=== PATIENT | female | born 1945 | race Caucasian/White ===

== ENCOUNTER 2018-06-29 11:31 | Inpatient (IN) | payer MEDICARE, OTHER ==
[~2018-06-29] VITALS: Ht 165.1 cm; Wt 111.4 kg
[~2018-06-29 11:31] MED LIST: FLAGYL500 MG PO; FLEXERIL 1010 MG/TAB PO; LEVAQUIN 750MG750 M1 PO; LORTAB 7.5/5001 TAB PO; NO HOME MEDICATIONS; PERCOCET 325 MG1 TA2 PO; PROMETHAZINE12.5 M5 PO
[2018-06-29] MEDS ORDERED: GLUCOPHAGE500 MG/TAB PO (12:14)
[2018-06-29] MEDS ORDERED: PRINIVIL10 MG PO (12:19)
[2018-06-29] MEDS ORDERED: CALCIUM 600MG+D1 TAB PO (12:20)
[2018-06-29] MEDS ORDERED: PROLIA60 MG/ML SQ (12:20)
[2018-06-29 12:45] LABS: BASO % 0.7 % (0.0-2.0); EOS # 0.1 (0.0-0.7); EOS % 2.3 % (0-4.0); GRAN # 1.6 (1.4-6.5); GRAN % 55.1 % (42.2-75.2); HEMOGLOBIN 11.4 g/dl (12.5-16.0); LYMPH # 0.9 (1.2-3.4); LYMPH % 29.5 % (20.0-51.0); MEAN CELL VOLUME 92 fl (80.0-100.0); MEAN CORPUSCULAR HEMOGLOBIN 30 pg (27.0-31.0); MEAN CORPUSCULAR HGB CONC 32 g/dl (33.0-37.0); MEAN PLATELET VOLUME 11.1 fl (7.4-10.4); MONO # 0.4 (0.1-0.6); MONO % 12.4 % (1.7-9.3); PLATELET COUNT 117 K/mm3 (130-400); RED BLOOD COUNT 3.84 M/mm3 (4.10-5.30); REDCELL DISTRIBUTION WIDTH-CV 16.1 % (11.5-14.5)
[2018-06-29 12:49] LABS: HEMATOCRIT 35.5 % (37.0-47.0)
[2018-06-29 12:59] LABS: ALBUMIN 3.7 gm/dL (3.5-5.0); BILIRUBIN,TOTAL 0.5 mg/dL (0.0-1.0); C-REACTIVE PROTEIN 2.5 mg/dL (0.0-0.9); CALCIUM 9.2 mg/dL (8.4-10.2); CREATININE, serum 0.6 (0.52-1.25); POTASSIUM 4.3 mmol/L (3.4-5.0); TOTAL PROTEIN 7.7 gm/dL (6.4-8.2)
[2018-06-29 13:40] LABS: COLLECTION METHOD CLEAN CATCH
[2018-06-29 13:50] LABS: MUCOUS Present /lpf; PH 5 (5-8); URINE APPEARANCE Cloudy; URINE BACTERIA Rare /hpf; URINE BILIRUBIN Negative (NEGATIVE); URINE BLOOD 2+ (NEGATIVE); URINE COLOR Yellow; URINE GLUCOSE 1+ (NEGATIVE); URINE KETONE Negative (NEGATIVE); URINE LEUKOCYTE ESTERASE 1+ (NEGATIVE); URINE NITRATE Negative (NEGATIVE); URINE PROTEIN(semi-quant) Negative (NEGATIVE); URINE RBC 0-2 /hpf; URINE UROBILINOGEN Negative (NEGATIVE)
[2018-06-29 18:45] VITALS: BP 143/61; PULSE 90; TEMP 98
[2018-06-29 18:49] VITALS: BP 143/61; PULSE 90; TEMP 98
--- NOTE | 2018-06-29 19:00 | NUR ---
Arrived to the room at this time. No pain reported unless moving. Educated on the room and surroundings. This nurse educated to call for assistance with ambulation. Report given to GENESIS Yadav to resume care, complete Admission B, medications and allergies. This patient has not been seen by CLINICAL BIOCHEMICAL GENETICIST.
--- NOTE | 2018-06-29 20:00 | NUR ---
Admitted to medical floor from ER tonight- DX abdominal pain, states pain is much better after meds in ER were given- denies need for any pain meds now, Janneth HUA was here to see pt kalia- ,, IV fluids of NS at 125cc/hr, new IV site started L/FA, due to ER site was leaking- SCD,s on, Was given Rocephin {for UTI} and flagyl in ER
[2018-06-29 20:11] VITALS: BP 143/61; PULSE 90; TEMP 98
[2018-06-29 23:09] VITALS: BP 132/57; PULSE 86; TEMP 98.6
[2018-06-30 04:11] VITALS: BP 152/64; PULSE 81; TEMP 97.9
--- NOTE | 2018-06-30 04:44 | NUR ---
Up to bathroom, voided 200cc leonardo urine, was not in pain but after walking to bathroom requesting pain some tylenol-- tylenol given as ordered- quiet night,, overall feeling much better, VSS
[2018-06-30 07:06] LABS: GRAN # 1.8 (1.4-6.5); GRAN % 70.8 % (42.2-75.2); HEMOGLOBIN 10.7 g/dl (12.5-16.0); LYMPH # 0.5 (1.2-3.4); LYMPH % 21.1 % (20.0-51.0); MEAN CELL VOLUME 93 fl (80.0-100.0); MEAN CORPUSCULAR HEMOGLOBIN 30 pg (27.0-31.0); MEAN CORPUSCULAR HGB CONC 32 g/dl (33.0-37.0); MEAN PLATELET VOLUME 11.2 fl (7.4-10.4); MONO # 0.2 (0.1-0.6); MONO % 7.7 % (1.7-9.3); PLATELET COUNT 110 K/mm3 (130-400); RED BLOOD COUNT 3.63 M/mm3 (4.10-5.30)
[2018-06-30 07:09] LABS: HEMATOCRIT 33.8 % (37.0-47.0)
[2018-06-30 07:15] LABS: ALBUMIN 3.4 gm/dL (3.5-5.0); BILIRUBIN UNCONJUGATED 0.1 mg/dL (0.0-1.1); BILIRUBIN,DIRECT 0.1 mg/dL (0.0-0.4); BILIRUBIN,TOTAL 0.3 mg/dL (0.0-1.0); CALCIUM 8.8 mg/dL (8.4-10.2); CREATININE, serum 0.6 (0.52-1.25); POTASSIUM 5.1 mmol/L (3.4-5.0); TOTAL PROTEIN 7.5 gm/dL (6.4-8.2)
[2018-06-30 07:31] VITALS: BP 127/52; PULSE 83; TEMP 97.9
--- NOTE | 2018-06-30 08:30 | NUR ---
Initial assessment completed the patient reported feeling much better today with reduced pain, hardly present unless moving. Up ad bob in the room. The call light is in place.
[2018-06-30 11:36] VITALS: BP 142/52; PULSE 84; TEMP 98.1
[2018-06-30 16:22] VITALS: BP 125/52; PULSE 76; TEMP 97.7
[2018-06-30 19:25] VITALS: BP 141/53; PULSE 87; TEMP 98.7
--- NOTE | 2018-06-30 19:33 | NUR ---
Report given to GENESIS Raymond to resume care.
--- NOTE | 2018-06-30 19:35 | NUR ---
No change throughout the day. The call light is in place. The patient requesting to discharge home tomorrow.
--- NOTE | 2018-06-30 20:00 | NUR ---
Shift assessment complete. Pt resting in bed, awake, a&o, cooperative c cares. Pt reports "some" continued abd pain, PRN Tylenol admin per pt req. Pt denies any other c/o. IV patent. Pt denies needs. Call light in reach, will monitor.
[2018-06-30 23:57] VITALS: BP 124/54; PULSE 78; TEMP 97.8
[2018-07-01 04:21] VITALS: BP 148/65; PULSE 85; TEMP 98.2
--- NOTE | 2018-07-01 05:48 | NUR ---
Pt resting in bed, condition unchanged. Pt has rested well this shift c very few needs. Pt has denied pain throughout shift. Ref IVF's when last bag ran out, states "I'm trying to get out of here today, I don't want any more fluid". Pt has denied any other c/o. No needs at this time. Call light in reach.
[2018-07-01 06:27] LABS: INR 1.1 (0.8-3.0); PROTHROMBIN TIME 12.8 SECONDS (9.7-12.8)
[2018-07-01 06:28] LABS: BASO % 0.7 % (0.0-2.0); EOS # 0.1 (0.0-0.7); EOS % 1.7 % (0-4.0); GRAN # 1.2 (1.4-6.5); HEMOGLOBIN 10.5 g/dl (12.5-16.0); LYMPH # 1.4 (1.2-3.4); LYMPH % 47.4 % (20.0-51.0); MEAN CELL VOLUME 93 fl (80.0-100.0); MEAN CORPUSCULAR HEMOGLOBIN 30 pg (27.0-31.0); MEAN CORPUSCULAR HGB CONC 32 g/dl (33.0-37.0); MEAN PLATELET VOLUME 11.2 fl (7.4-10.4); MONO # 0.3 (0.1-0.6); MONO % 9.9 % (1.7-9.3); PLATELET COUNT 122 K/mm3 (130-400); RED BLOOD COUNT 3.52 M/mm3 (4.10-5.30); REDCELL DISTRIBUTION WIDTH-CV 16.4 % (11.5-14.5); RETIC # 0.09 M/mm3 (0.02-0.16); RETIC % 2.5 % (0.5-3.52)
[2018-07-01 06:29] LABS: HEMATOCRIT 32.7 % (37.0-47.0)
[2018-07-01 06:36] LABS: ALBUMIN 3.2 gm/dL (3.5-5.0); BILIRUBIN,TOTAL 0.3 mg/dL (0.0-1.0); CALCIUM 8.8 mg/dL (8.4-10.2); CREATININE, serum 0.64 (0.52-1.25); MAGNESIUM 1.6 mg/dL (1.6-2.3); PHOSPHOROUS 3.2 mg/dL (2.5-4.5); POTASSIUM 4.4 mmol/L (3.4-5.0); TOTAL PROTEIN 6.7 gm/dL (6.4-8.2)
[2018-07-01 07:23] VITALS: BP 143/63; PULSE 82; TEMP 98
--- NOTE | 2018-07-01 09:35 | NUR ---
ZITA and SW student attended clinical rounds and then followed up with the patient and patient's daughter, Janeth, to discuss discharge plan. The patient lives in [place] with her daughter, Janeth. She reports independence with ADLs and has a cane and walker. The patient's PCP is Dr. Chip Raman and she receives her medications at [facility]. She reports no difficulties obtaining her meds. The patient does not have advanced directives, but she states that she has the forms and paperwork at home. The patient plans to return home with her daughter upon discharge. No additional needs at this time.
--- NOTE | 2018-07-01 09:49 | NUR ---
Assessment completed, alert/oriented, vital signs stable, reports pain is better but still having intermittent pain in that right groin/ pelvic region, in the room at this time/ starting her on some scheduled Tordol, collected fecal occult and it was positive, planning for discharge at some point today if she does well, denies other needs at this time, daughter present in the room, plan of care was discussed
[2018-07-01] MEDS ORDERED: PROTONIX 40MG T40 MG PO (11:46)
[2018-07-01 11:47] VITALS: BP 157/71; PULSE 80; TEMP 98
--- NOTE | 2018-07-01 12:04 | NUR ---
First visit from the mr teacher. No needs right now.
[2018-07-01 15:23] LABS: LYMPHOCYTE 54 % (20.0-51.0)
[2018-07-01 15:24] LABS: PLATELET ESTIMATE DECREASED (NORMAL)
[2018-07-01 15:25] LABS: NEUTROPHILS 39 % (42.0-75.2)
--- NOTE | 2018-07-01 16:41 | NUR ---
Discharge orders reviewed with patient and daughter, instructed to follow up with PCP/ pending labs with , explained we sent referral for GI follow up on +FOBT, instructed to stick with Tylenol only for continue pelvic pains/ untill otherwise changes made by PCP, referral made for PT/OT outpatient, IV removed, patient discharging and leaving with her ddaughter, I personally escorted her out the door by wheelchair
[2018-07-01 20:49] LABS: FOLATE (FOLIC ACID) 6.1 ng/mL (7.0-31.4)
== END 2018-07-01 16:46 | disposition home or self-care (01) | DRG 690 ==
LOC: COL.ER 11:31 → MEDICAL 17:35
PROVIDERS: Family Medicine; Nurse Practitioner; Physician Assistant; ADMIT Family Medicine
DX: N39.0 Urinary tract infection, site not specified (principal); D61.818 Other pancytopenia; E11.9 Type 2 diabetes mellitus without complications; I10 Essential (primary) hypertension; Z79.4 Long term (current) use of insulin; R53.81 Other malaise; M35.3 Polymyalgia rheumatica; N28.89 Other specified disorders of kidney and ureter; R19.5 Other fecal abnormalities; D69.6 Thrombocytopenia, unspecified; M70.88 Other soft tissue disorders related to use, overuse and pressure other site; K76.9 Liver disease, unspecified
CPT/HCPCS: 99222-AI; 99233-AI; 99239; A4216; G0378; J0696; J1170; J1815; J1885; J2270; J2405; J7030; J7512; Q9967

== ENCOUNTER → 2018-07-18 | Outpatient (CLI) | payer MEDICARE, OTHER ==
[~2018-07-18] MED LIST changes: +CALCIUM 600MG+D1 TAB PO; +GLUCOPHAGE500 MG/TAB PO; +PRINIVIL10 MG PO; +PROLIA60 MG/ML SQ; +PROTONIX 40MG T40 MG PO
== END ==
LOC: COL.RAD 08:15
DX: K76.0 Fatty (change of) liver, not elsewhere classified (principal); K80.20 Calculus of gallbladder without cholecystitis without obstruction

== ENCOUNTER → 2018-09-23 | Outpatient (CLI) | payer MEDICARE, OTHER ==
[~2018-09-23] MED LIST changes: +AMARYL 2MG T2 MG/TAB PO; +CLEOCIN HCL300 MG PO; +DITROPAN 5MG TAB5 MG PO; +FOLIC ACID 11 MG/TA1 PO; -PRINIVIL10 MG PO; +PRINIVIL20 MG PO; +PROAIR HFA0.09 MG/AC IH; +VITAMIN B12 1541 TAB PO
[2018-09-23 18:42] LABS: BASO % 0.7 % (0.0-2.0); EOS # 0.1 (0.0-0.7); GRAN # 1.6 (1.4-6.5); GRAN % 51.6 % (42.2-75.2); LYMPH % 33.7 % (20.0-51.0); MEAN CELL VOLUME 87 fl (80.0-100.0); MEAN CORPUSCULAR HGB CONC 31 g/dl (33.0-37.0); MEAN PLATELET VOLUME 12.1 fl (7.4-10.4); MONO # 0.3 (0.1-0.6); PLATELET COUNT 159 K/mm3 (130-400); RED BLOOD COUNT 3.36 M/mm3 (4.10-5.30); REDCELL DISTRIBUTION WIDTH-CV 15.9 % (11.5-14.5)
[2018-09-23 18:49] LABS: HEMATOCRIT 29.3 % (37.0-47.0); MEAN CORPUSCULAR HEMOGLOBIN 27 pg (27.0-31.0)
[2018-09-23 18:53] LABS: CALCIUM 9.1 mg/dL (8.4-10.2); CREATININE, serum 0.57 (0.52-1.25)
== END ==
LOC: ZCOL.LAB 16:24
PROVIDERS: Nurse Practitioner Family
DX: I26.99 Other pulmonary embolism without acute cor pulmonale (principal); J69.0 Pneumonitis due to inhalation of food and vomit

== ENCOUNTER → 2018-09-24 | Outpatient (CLI) | payer MEDICARE, OTHER | LOC: COL.RAD 13:32 | DX: D35.01 Benign neoplasm of right adrenal gland (principal); J98.11 Atelectasis; J90 Pleural effusion, not elsewhere classified; I26.99 Other pulmonary embolism without acute cor pulmonale | CPT/HCPCS: Q9967 ==